=== PATIENT | female | born 1935 | race Two or more races ===

== ENCOUNTER 2017-12-03 19:18 | Inpatient (IN) | payer MEDICARE ==
[~2017-12-03] VITALS: Ht 165.1 cm; Wt 54.9 kg
--- NOTE | 2017-12-03 19:36 | NUR ---
BIB D/T family called 911, PER EMS FAMILY STATED "WE CAN NOT TAKE CARE OF HER ANYMORE AND THE FAMILY HAS NOT CHECKED THE PT'S BLOOD GLUCOSE LEVEL IN OVER A WEEK". PER EMS PT WAS FOUND LAYING ON THE FLOOR. PT DENIES DIZZINESS, HEAD TRAUMA, N/V, BLURRED VISSION. PT IS AAOX3. PT C/O BACK PAIN D/T "HAVING CHRONIC BACK PAIN".PT PLACED ON CARDIAC MONTOR AND POX. PT SAFETY AND COMFORT MEASURES IN PLACE. NO S/S OF ACUTE DISTRESS NOTED. RESP EVEN AND UNLABORED. AWAITING MD FOR EVAL.
--- NOTE | 2017-12-03 19:40 | NUR ---
PER EMS, PT'S FAMILY MEMBER DID NOT HAVE A LIST OF THE MEDICATIONS AND PT UNABLE TO RECALL HER HOME MEDS. MD HATHAWAY.
--- NOTE | 2017-12-03 19:55 | NUR ---
PT TO CT
--- NOTE | 2017-12-03 20:24 | NUR ---
PT BACK FROM CT
--- NOTE | 2017-12-03 20:24 | NUR ---
PHLEBOTOMY BEDSIDE FOR BLOO DRAW
[2017-12-03 20:32] LABS: BASOPHILS # (AUTO) 0.1 /CMM (0.0-0.2); BASOPHILS % (AUTO) 0.5 % (0.0-2.0); EOSINOPHILS % (AUTO) 0.5 % (0.0-6.0); HEMATOCRIT 35 % (33-45); HEMOGLOBIN 11.7 g/dL (11.5-14.8); LYMPHOCYTES # (AUTO) 0.4 /CMM (0.8-4.8); LYMPHOCYTES % (AUTO) 2.8 % (20.0-44.0); MEAN CORPUSCULAR HEMOGLOBIN 31 PG (26.0-33.0); MEAN CORPUSCULAR HGB CONC 33 g/dl (31.0-36.0); MEAN CORPUSCULAR VOLUME 94 fL (82-100); MONOCYTES # (AUTO) 0.4 /CMM (0.1-1.30); MONOCYTES % (AUTO) 2.9 % (2.0-12.0); NEUTROPHILS % (AUTO) 93.3 % (43.0-81.0); PLATELET COUNT (AUTO) 278 /CMM (150-450); RDW COEFFICIENT OF VARIATION 14.1 (11.5-15.0); RED BLOOD CELL COUNT(AUTO) 3.77 MIL/uL (4.0-5.2)
[2017-12-03 20:42] LABS: CALCIUM, SERUM 8.9 mg/dL (8.5-10.1); CARBON DIOXIDE 22 mmol/L (21-32); CHLORIDE 106 mmol/L (98-107); CREATININE 2.3 mg/dL (0.6-1.3); GLUCOSE 124 mg/dL (74-106); POTASSIUM 4.5 mmol/L (3.5-5.1); SODIUM SERUM 136 mmol/L (136-145); UREA NITROGEN, BLOOD 71 mg/dL (7-18)
[2017-12-03 20:48] LABS: ALANINE AMINOTRANSFERASE 17 U/L (12-78); ALBUMIN 2.8 g/dL (3.4-5.0); ALKALINE PHOSPHATASE 65 U/L (46-116); ASPARTATE AMINOTRANSFERASE 18 U/L (15-37); BILIRUBIN,DIRECT 0.1 mg/dL (0.0-0.2); BILIRUBIN,TOTAL 0.5 mg/dL (0.2-1.0); LIPASE 75 U/L (73-393)
--- NOTE | 2017-12-03 20:51 | NUR ---
PT PLACED ON BEDPAN. PT REFUSED BENZ CATH. MADE AWARE
--- NOTE | 2017-12-03 21:20 | NUR ---
PT UNABLE TO GIVE URINE SAMPLE AT THIS TIME, MADE AWARE.
--- NOTE | 2017-12-03 21:50 | NUR ---
CALLED [facility] FOR PANEL - SALES AGENT PROTECTIVE SERVICE TIMOTHY CAMPBELL
--- NOTE | 2017-12-03 21:58 | NUR ---
TECHNICAL REPORT WRITER BEDSIDE.
[2017-12-03] MEDS ORDERED: IV NS 0.9% 1,000 ML IV PRN (22:00)
[2017-12-03] MEDS ORDERED: MAGNESIUM HYDROXIDE 30 ML UDC PO PRN (22:30)
[2017-12-03] MEDS ORDERED: Z GUARD REMEDY 2 OZ OINT TP PRN (22:30)
[2017-12-03] MEDS ORDERED: DEXTROSE 50%-WATER 50 ML DISP.SYRIN IV PRN (22:30)
[2017-12-03] MEDS ORDERED: ZOLPIDEM TARTRATE 5 MG TABLET PO PRN (22:30)
[2017-12-03] MEDS ORDERED: ACETAMINOPHEN 325 MG TABLET PO PRN (22:30)
[2017-12-03] MEDS ORDERED: ONDANSETRON HCL/PF 4 MG/2 ML VIAL IVP PRN (22:30)
--- NOTE | 2017-12-03 23:08 | NUR ---
REPORT GIVEN TO RETAIL TIRE SALES MANAGERRICHARD WISE FOR AUGUST
--- NOTE | 2017-12-03 23:09 | NUR ---
RN OPENING NOTES RECEIVED BEDSIDE REPORT FROM KIKI, ER NURSE. PT ENTERED UNIT VIA GURNEY ACCOMPANIED BY 2 ER STAFF. PT CALM, IN NO ACUTE DISTRESS, NO SOB, BREATHING EVEN AND UNLABORED, ALERT AND ORIENTED X 3 BUT NOTED WITH FORGETFULNESS, VERBALLY RESPONSIVE, ABLE TO MAKE NEEDS KNOWN. ORIENTED PT TO UNIT, ROOM, ADMISSION PROCESS, CALL LIGHT AND USE OF CALL LIGHT. ALL PATIENT'S NEEDS ATTENDED TO. PLACED CALL LIGHT WITHIN EASY REACH. BED IN LOW POSITION AND LOCKED IN PLACE. WILL CONTINUE TO MONITOR PT.
[2017-12-03 23:15] VITALS: BP 130/57
[2017-12-04] MEDS ORDERED: MEROPENEM 500 MG VIAL IV ONE (00:23)
[2017-12-04] MEDS: MEROPENEM 500 MG in IV NS 0.9% 100 ML IV SCH ×2 (00:27→11:44)
[2017-12-04] MEDS: IV NS 0.9% 1,000 ML IV PRN ×2 (00:28→15:39)
--- NOTE | 2017-12-04 01:25 | NUR ---
RN NOTES ABLE TO CALL PATIENT'S DAUGHTER, MALI, TEL # [phone], AND MALI WAS ABLE TO PROVIDE PATIENT'S HOME MEDICATION. ALSO NOTED PT EPISODE OF LOOSE STOOL. PAGED RENAE AGUIRRE FOR MED RECONCILIATION. WILL CONTINUE TO MONITOR PT.
[2017-12-04] MEDS ORDERED: METO50TA16 PO (01:31)
[2017-12-04] MEDS ORDERED: MECL-102 PO (01:37)
[2017-12-04] MEDS ORDERED: CLON0.1T14 PO (01:37)
[2017-12-04] MEDS ORDERED: LEVO125T8 PO (01:37)
[2017-12-04] MEDS ORDERED: DILT180C53 PO (01:37)
[2017-12-04] MEDS ORDERED: ESCI10TA PO (01:37)
[2017-12-04] MEDS ORDERED: MEGE400O4 PO (01:37)
[2017-12-04] MEDS ORDERED: AMIO200T4 PO (01:37)
[2017-12-04] MEDS ORDERED: ACET-907 PO (01:37)
[2017-12-04] MEDS ORDERED: APIX2.5T PO (01:37)
[2017-12-04] MEDS ORDERED: ALPR0.5T PO (01:37)
[2017-12-04] MEDS ORDERED: METF500T6 PO (01:37)
[2017-12-04 04:00] VITALS: BP 126/61
[2017-12-04 06:22] LABS: EOSINOPHILS % (AUTO) 0.4 % (0.0-6.0); HEMATOCRIT 31 % (33-45); HEMOGLOBIN 10.3 g/dL (11.5-14.8); LYMPHOCYTES # (AUTO) 0.6 /CMM (0.8-4.8); LYMPHOCYTES % (AUTO) 4.5 % (20.0-44.0); MEAN CORPUSCULAR HEMOGLOBIN 32 PG (26.0-33.0); MEAN CORPUSCULAR HGB CONC 33 g/dl (31.0-36.0); MEAN CORPUSCULAR VOLUME 96 fL (82-100); MONOCYTES # (AUTO) 0.6 /CMM (0.1-1.30); NEUTROPHILS # (AUTO) 12.9 /CMM (1.8-8.9); NEUTROPHILS % (AUTO) 91.1 % (43.0-81.0); PLATELET COUNT (AUTO) 235 /CMM (150-450); RDW COEFFICIENT OF VARIATION 15.4 (11.5-15.0); RED BLOOD CELL COUNT(AUTO) 3.23 MIL/uL (4.0-5.2); WHITE BLOOD COUNT (AUTO) 14.1 K/uL (4.3-11.0)
--- NOTE | 2017-12-04 06:27 | NUR ---
RN CLOSING NOTES PATIENT IN BED, ASLEEP BUT EASILY AROUSABLE, VERBALLY RESPONSIVE. PT WITH NO SOB NOTED, BREATHING EVEN AND UNLABORED, IN NO ACUTE DISTRESS, DENIES PAIN, NO FACIAL GRIMACING NOTED. NOTED PATIENT WITH 2 EPISDOES OF LOOSE STOOL.ALL PATIENT'S NEEDS ATTENDED TO. BENZ CATHETER DRAINING WITH YELLOW URINE. IVF INFUSING WELL ORDERED. PLACED CALL LIGHT WITHIN EASY REACH. BED IN LOW POSITION AND LOCKED IN PLACE. WILL ENDORSE TO AM SHIFT NURSE FOR CONTINUITY OF CARE. Addendum: 12/04/17 at 0631 by MAXWELL MOORE RN PT ON TELE MONITORING SR WITH AFIB, A-PACING @ 60S.
[2017-12-04 06:31] LABS: APPEARANCE,URINE CLOUDY (CLEAR); BILIRUBIN,URINE NEGATIVE (NEGATIVE); BLOOD, URINE 2+ Ery/uL (NEGATIVE); COLOR,URINE YELLOW (YELLOW); KETONES,URINE TRACE (NEGATIVE); LEUKOCYTE ESTERASE ,URINE 2+ (NEGATIVE); NITRITE, URINE NEGATIVE (NEGATIVE); PH,URINE 5.5 (5.0-8.0); PROTEIN,URINE TRACE mg/dl (NEGATIVE); UGLUCOSE NEGATIVE (NEGATIVE); UROBILINOGEN,URINE 0.2 EU/dL (0.2)
[2017-12-04 06:45] LABS: CHOLESTEROL 93 mg/dL (<200); HDL CHOLESTEROL 26 mg/dL (40-60); LDL 58 mg/dL (0-99); TRIGLYCERIDES 78 mg/dL (30-150)
[2017-12-04 06:53] LABS: CARBON DIOXIDE 18 mmol/L (21-32); CHLORIDE 110 mmol/L (98-107); CREATININE 1.7 mg/dL (0.6-1.3); GLUCOSE 86 mg/dL (74-106); MAGNESIUM 2.1 mg/dL (1.8-2.4); POTASSIUM 4.1 mmol/L (3.5-5.1); SODIUM SERUM 142 mmol/L (136-145); UREA NITROGEN, BLOOD 54 mg/dL (7-18)
[2017-12-04] MEDS: BLOOD SUGAR DIAGNOSTIC 1 EACH STRIP IN SCH ×4 (06:55→22:02)
--- NOTE | 2017-12-04 07:10 | NUR ---
MS RAMOS INITIAL NOTES Received patient on bed A/O x3 with episodes of forgetfulness. On tele monitor A-pacing @60. On RA with no SOB/respiratory distress noted. No complaints of discomfort at this time. With patent Portacath on RCW, no signs of infection noted. With patent indwelling FC draining well with clear yellow urine output. For wound and podiatry consult with PT evaluation. With report from previous shift of 2x episode of LBM. On enhanced contact precaution for possible c-diff. Kept clean, dry and comfortable. Will monitor accordingly.
[2017-12-04] MEDS: LEVOTHYROXINE SODIUM 125 MCG TABLET PO SCH (07:24)
[2017-12-04 07:45] LABS: BACTERIA,URINE Many /HPF (None Seen); SQUAMOUS EPITHELIAL CELL,UR Few /HPF (None Seen)
[2017-12-04 07:47] LABS: YEAST,URINE Many /HPF (None Seen)
[2017-12-04 07:48] LABS: URIC ACID CRYSTALS,URINE Moderate /HPF (None Seen)
[2017-12-04 08:00] VITALS: BP 130/68
[2017-12-04] MEDS: MEGESTROL ACETATE SUSP 400 MG/10 ML UDC PO SCH (08:37)
[2017-12-04] MEDS: CLONIDINE HCL 0.1 MG TABLET PO SCH ×3 (08:38→16:41)
[2017-12-04] MEDS: METOPROLOL TARTRATE 50 MG TABLET PO SCH ×2 (08:38→16:42)
[2017-12-04] MEDS: AMIODARONE HCL 200 MG TABLET PO SCH (08:38)
[2017-12-04] MEDS: DILTIAZEM HCL CD 180 MG PO SCH (08:47)
[2017-12-04] MEDS ORDERED: CLOPIDOGREL BISULFATE 75 MG TABLET PO SCH (09:00)
--- NOTE | 2017-12-04 10:51 | NUR ---
MS RN NOTES Patient noted to be confused telling she is going to the hospital, picking out telemonitor patches. Reorient the patient, applied new telemonitor patches. On A-pacing @ 60. Turned on bed exit alarm. Will continue to monitor closely.
[2017-12-04 12:00] VITALS: BP 116/63
--- NOTE | 2017-12-04 13:15 | NUR ---
MS RN NOTES 1300 BP checked 100/49mmHg; HR 61bpm. Due med for BP held.
[2017-12-04 16:00] VITALS: BP 104/60
[2017-12-04] MEDS: APIXABAN 2.5 MG TABLET PO SCH (16:41)
--- NOTE | 2017-12-04 16:48 | NUR ---
MS RN NOTES Due BP meds held due to low parameters: LUZ MARINA 104/60mmHg; HR 60bpm.
[2017-12-04] MEDS: VANCOMYCIN HCL 125 MG/2.5 ML ORAL.SUSP PO SCH (17:00)
--- NOTE | 2017-12-04 17:14 | NUR ---
Spoke with patient daughter Derek, stated patient lives locally with her 2 daughters Derek and Chasity in a single level dwelling but has wide 3 steps to entrance. Prior to admit, patient was ambulating with a walker and requires min assist with adl's. Derek stated that patient has been falling at home and developed pressure ulcers. She has been declining with her mobility, difficulty with ambulation. Discussed dc planning options, family agreed with short term SNF. List will be provided to daughter. Family prefer [facility]. Addendum: 12/04/17 at 1714 by MILLICENT ORANTES RN Amended: Links added.
[2017-12-04] MEDS: INSULIN REGULAR, HUMAN 100 UNIT/ML 3 ML VIAL SQ PRN (17:23)
--- NOTE | 2017-12-04 19:01 | NUR ---
CHIEF ACCOUNTING OFFICER CLOSING NOTES Patient A/O X2-3, on Carlson's position, episodes of forgetfulness noted. Portacath remained patent and intact, no signs of infection noted. Reoriented patient her current location; reemphasized to patient the importance of her tele monitoring. Remained on enhanced contact precaution for positive c.diff. Started on PO Vanco as ordered. BP meds were held due to low parameters. Attended all concerns, call light kept at bedside within easy reach. For bilateral lower extremities wound debridement, verbal consent obtained from daughter Derek Watts. For arterial Doppler lower extremities bilateral. Afebrile throughout the shift. Monitored closely and regularly. Endorsed to the next shift.
--- NOTE | 2017-12-04 19:15 | NUR ---
TELE/RN NOTES RECEIVED PT. LYING IN BED. PT. IS AWAKE, ALERT AND ORIENTED X2. BREATHING EVEN AND UNLABORED ON ROOM AIR. NO SOB, RESPIRATORY DISTRESS OR COMPLAINTS OF PAIN NOTED AT THIS TIME. PT. WITH EXTERNAL FUEL DOCK ATTENDANT PRESENT AND INTACT, CURRENT RHYTHM = A-PACING HR 60. PT. WITH RIGHT CHEST WALL PORTACATH PRESENT, PATENT AND INTACT ADMINISTERING TO PT. NS @ 75ML/HR. PT. WITH BENZ CATHETER PRESENT, PATENT AND INTACT DRAINING CLOUDY YELLOW URINE. PT. WITH FAMILY MEMBER PRESENT AT BEDSIDE. ISOLATION PRECAUTIONS IMPLEMENTED AND IN PLACE. PER DAYSHIFT NURSE PT. IS SCHEDULED FOR BILATERAL LOWER EXTREMITY EOUND DEBRIDEMENT WITH DR. SORTO TOMORROW, CONSENT IS SIGNED AND IN PT. CHART. BED LOCKED AND IN LOWEST POSITION, SIDE RAILS UP X3, BED ALARM ON, CALL LIGHT WITHIN REACH, WILL CONTINUE TO MONITOR.
[2017-12-04 20:00] VITALS: BP 106/55
[2017-12-04] MEDS: ESCITALOPRAM OXALATE (10 MG) 10 MG TABLET PO SCH (22:02)
[2017-12-05] VITALS: BP 115/58
[2017-12-05] MEDS: VANCOMYCIN HCL 125 MG/2.5 ML ORAL.SUSP PO SCH ×5 (00:18→23:36)
[2017-12-05] MEDS: MEROPENEM 500 MG in IV NS 0.9% 100 ML IV SCH ×3 (00:19→23:36)
--- NOTE | 2017-12-05 03:09 | NUR ---
TELE/RN NOTES PT. IS LYING IN BED RESTING. BREATHING EVEN AND UNLABORED ON ROOM AIR. NO SOB, RESPIRATORY DISTRESS OR COMPLAINTS OF PAIN NOTED AT THIS TIME. ISOLATION PRECAUTIONS IMPLEMENTED AND IN PLACE. BED LOCKED AND IN LOWEST POSITION, SIDE RAILS UP X3, BED ALARM ON, CALL LIGHT WITHIN REACH. GAVE REPORT AND ENDORSED PT. TO RICHARD ARREOLA FOR CONTINUITY OF CARE.
--- NOTE | 2017-12-05 03:10 | NUR ---
SYRUP MAKER COOK NOTES RECEIVED REPORT FROM MIKAYLA RAMOS FOR CONTINUITY OF CARE. PATIENT IN BED, ASLEEP BUT EASILY AROUSABLE, IN NO ACUTE DISTRESS, RECEIVING IVF ORDERED. ALL NEEDS ATTENDED TO, CALL LIGHT WITHIN EASY REACH, BED IN LOW POSITION AND LOCKED IN PLACE. WILL CONTINUE TO MONITOR.
[2017-12-05 04:00] VITALS: BP 116/55
[2017-12-05] MEDS: IV NS 0.9% 1,000 ML IV PRN ×2 (04:03→18:22)
--- NOTE | 2017-12-05 06:40 | NUR ---
WOUND CARE CONSULT WOUND CARE RECEIVED CONSULT FOR RIGHT HEEL WOUND. WILL DEFER BILATERAL HEELS TO PODIATRY AND SACRAL STAGE 3 ALL POA TO SURGICAL TEAM. PATIENT WITH YASMIN AT 13. PT ON ISOFLEX LOW AIRLOSS SPECIALTY BED, RECOMMEND CONTINUE TURNING Q 2 HOURS AND BILATERAL HEEL FLOATING. RECOMMEND CONTINUE USE OF Z GUARD FOR SKIN/MOISTURE MANAGEMENT. WILL SEE PRN. Addendum: 12/05/17 at 0643 by ALEIDA OSUNA WNDNU ALL PRESSURE ULCER PREVENTION MEASURES NOTED TO BE IN PLACE AT THIS TIME.
[2017-12-05 06:47] LABS: EOSINOPHILS % (AUTO) 1.3 % (0.0-6.0); HEMATOCRIT 30 % (33-45); HEMOGLOBIN 9.9 g/dL (11.5-14.8); LYMPHOCYTES # (AUTO) 0.8 /CMM (0.8-4.8); LYMPHOCYTES % (AUTO) 8.1 % (20.0-44.0); MEAN CORPUSCULAR HEMOGLOBIN 32 PG (26.0-33.0); MEAN CORPUSCULAR HGB CONC 33 g/dl (31.0-36.0); MEAN CORPUSCULAR VOLUME 97 fL (82-100); MONOCYTES # (AUTO) 0.5 /CMM (0.1-1.30); MONOCYTES % (AUTO) 4.6 % (2.0-12.0); NEUTROPHILS # (AUTO) 8.9 /CMM (1.8-8.9); PLATELET COUNT (AUTO) 237 /CMM (150-450); RDW COEFFICIENT OF VARIATION 14.9 (11.5-15.0); WHITE BLOOD COUNT (AUTO) 10.3 K/uL (4.3-11.0)
[2017-12-05] MEDS: BLOOD SUGAR DIAGNOSTIC 1 EACH STRIP IN SCH ×4 (06:50→22:06)
[2017-12-05] MEDS: LEVOTHYROXINE SODIUM 125 MCG TABLET PO SCH (06:50)
[2017-12-05 07:20] LABS: CALCIUM, SERUM 7.5 mg/dL (8.5-10.1); CARBON DIOXIDE 19 mmol/L (21-32); CHLORIDE 111 mmol/L (98-107); CREATININE 1.2 mg/dL (0.6-1.3); GLUCOSE 89 mg/dL (74-106); POTASSIUM 3.7 mmol/L (3.5-5.1); SODIUM SERUM 142 mmol/L (136-145); UREA NITROGEN, BLOOD 28 mg/dL (7-18)
--- NOTE | 2017-12-05 07:21 | NUR ---
HOME SECURITY PROFESSIONAL CLOSING NOTES PATIENT IN BED, ASLEEP BUT EASILY AROUSABLE, NO SOB, BREATHING EVEN AND UNLABORED AND IN NO ACUTE DISTRESS. PT DENIES PAIN, NAUSEA AND DIZZINESS, CONTINUES TO RECEIVE IVF ORDERED VIA PORTACATH ON RCW, WITH BENZ CATHETER, DRAINING WELL WITH ELIEL URINE. PT WAS TURNED AND REPOSITIONED [id number], ALL NEEDS ATTENDED TO THROUGHOUT THE SHIFT, RE-ORIENTED NEEDED. PLACED CALL LIGHT WITHIN EASY REACH, BE DIN LOW POSITION AND LOCKED IN PLACE. ON TELE MONITORING A-PACING @ 60s. WILL ENDORSE TO AM SHIFT NURSE FOR CONTINUITY OF CARE.
[2017-12-05 08:00] VITALS: BP 140/97
[2017-12-05] MEDS: MEGESTROL ACETATE SUSP 400 MG/10 ML UDC PO SCH (08:21)
[2017-12-05] MEDS: METOPROLOL TARTRATE 50 MG TABLET PO SCH ×2 (08:22→17:00)
[2017-12-05] MEDS: DILTIAZEM HCL CD 180 MG PO SCH (08:22)
[2017-12-05] MEDS: AMIODARONE HCL 200 MG TABLET PO SCH (08:24)
[2017-12-05] MEDS: CLONIDINE HCL 0.1 MG TABLET PO SCH ×3 (08:25→17:00)
[2017-12-05] MEDS: APIXABAN 2.5 MG TABLET PO SCH ×2 (08:27→17:32)
--- NOTE | 2017-12-05 08:45 | NUR ---
MS RN NOTES RECEIVED PATIENT IN BED ALERT ORIENTED X 2. NO ACUTE DISTRESS NOTED. BREATHING UNLABORED. NO SOB NOTED. IV ACCESS PATENT AND INTACT, NO REDNESS OR SWELLING NOTED, SECURED WITH TRANSPARENT DRESSING. BENZ CATHETER INTACT, DRAINING WELL. SAFETY MEASURES IN PLACE. CALL LIGHT WITHIN REACH. WILL CONTINUE TO MONITOR ACCORDINGLY.
[2017-12-05] MEDS: HYDROGEL DRESSING 90 GM TUBE TP PRN (08:51)
[2017-12-05] MEDS: HYDROGEL DRESSING 90 GM TUBE TP SCH (09:22)
[2017-12-05] MEDS ORDERED: LIDOCAINE 1% INJ 50 ML MDV IJ ONE (09:30)
[2017-12-05] MEDS ORDERED: SILVER NITRATE APPLICATOR 1 EA BOX TP STA (09:52)
--- NOTE | 2017-12-05 10:00 | NUR ---
MS RN NOTES DEBRIDEMENT OF BILATERAL HEEL DONE AT BEDSIDE BY GIGI SORTO DPM, COVERED WITH GAUZE AND KERLIX. PATIENT TOLERATED WELL. POST DEBRIDEMENT PHOTO TAKEN PLACED AT THE CHART. WILL CONTINUE TO MONITOR PATIENT.
[2017-12-05 16:00] VITALS: BP 108/61
--- NOTE | 2017-12-05 18:43 | NUR ---
MS RN NOTES PATIENT IN BED ALERT ORIENTED X 2. DAUGHTER AT BEDSIDE. NO ACUTE DISTRESS NOTED. BREATHING UNLABORED. NO SOB NOTED. IV ACCESS PATENT AND INTACT, NO REDNESS OR SWELLING NOTED, SECURED WITH TRANSPARENT DRESSING. BENZ CATHETER INTACT, DRAINING WELL. NEEDS ATTENDED AND ANTICIPATED. BILATERAL HEEL DRESSING INTACT, CLEAN AND DRY, NO BLEEDING NOTED. KEPT CLEAN, DRY AND COMFORTABLE. SAFETY MEASURES IN PLACE. CALL LIGHT WITHIN REACH. WILL CONTINUE TO MONITOR ACCORDINGLY. WILL ENDORSED TO NIGHT NURSE FOR CONTINUITY OF CARE.
--- NOTE | 2017-12-05 19:00 | NUR ---
MS RN OPENING NOTE Patient was seen in high-Carlson's position in bed AAOx2, breathing on RA with no SOB, and currently no signs of acute distress. NS at 75ml/hr is running through the Port-a-cath in the right chest wall with no signs of leaking, infiltration, redness, or edema. Bilateral heels are offloaded and covered with a dressing (s/p wound debridement today 12/05); dressings are clean, dry, and intact with no signs of bleeding. Padilla is draining yellow urine. Daughter Derek is at the bedside. Thorough education was provided to the patient and daughter regarding C.diff. infection, what it is, how it can spread, the need to wear gown and gloves, proper hand washing, and using bleach to clean surfaces. Both patient and daughter verbalized understanding. Patient is currently comfortable in bed and has no immediate needs or concerns. Will continue to monitor.
[2017-12-05 20:00] VITALS: BP 102/55
--- NOTE | 2017-12-05 21:24 | NUR ---
MS RN CLOSING NOTE Patient remains in stable condition. Report given to Joyce for continuity of care.
[2017-12-05] MEDS: ESCITALOPRAM OXALATE (10 MG) 10 MG TABLET PO SCH (21:57)
--- NOTE | 2017-12-05 22:07 | NUR ---
RN MS NOTES BS 120 - NO COVERAGE NEEDED
[2017-12-06] MEDS: VANCOMYCIN HCL 125 MG/2.5 ML ORAL.SUSP PO SCH ×4 (06:31→23:50)
[2017-12-06] MEDS: BLOOD SUGAR DIAGNOSTIC 1 EACH STRIP IN SCH ×4 (06:39→21:55)
--- NOTE | 2017-12-06 06:53 | NUR ---
RN MS NOTES BS 85 - NO COVERAGE NEEDE
--- NOTE | 2017-12-06 06:54 | NUR ---
RN MS CLOSING NOTES PATIENT IN BED RESTING. ALERT AND ORIENTED X1, CONFUSED. WHEN AWAKE. VERBALLY RESPONSIVE. BREATHING EVEN AND UNLABORED. NO SOB NOTED. CURRENTLY WITH NO COMPLAINTS OF PAIN OR DISCOMFORT. NO FACIAL GRIMACING. SKIN DRY AND WARM TO TOUCH. RIGHT UPPER CHEST PORT-A-CATH INTACT AND PATENT - CURRENTLY RUNNING NS @ 75ML/HR. PATIENTS IS S/P BILATERAL HEEL DEBRIDEMENT 12/05/17. DRESSING CURRENTLY DRY AND INTACT. DRESSING ON SACRUM CHANGED. REMAINES ON CONTACT ISOLATION FOR CDIFF. KEPT CLEAN, DRY, AND COMFORTABLE. ALL OTHER NEEDS ATTENDED TO. CALL LIGHT WITHIN REACH. BED ON LOWEST LOCKED POSITION. WILL ENDORSE TO ONCOMING NURSE FOR CONTINUITY OF CARE.
--- NOTE | 2017-12-06 07:15 | NUR ---
MS RN INITIAL NOTES Received patient asleep on low Carlson's position, with patent portacath on upper RCW with NS infusing well @ 75ml/hr. No s/s of discomfort noted, respiration even and unlabored. With patent F/C indwelling well with clear yellow urine output. S/PD1 wound debridement of bilateral heels with orders to change dressing PRN if soiled. Kept clean, dry and comfortable. Will continue to monitor accordingly.
[2017-12-06] MEDS: LEVOTHYROXINE SODIUM 125 MCG TABLET PO SCH (07:38)
[2017-12-06] MEDS: IV NS 0.9% 1,000 ML IV PRN ×2 (07:53→23:51)
[2017-12-06 08:00] VITALS: BP_SYST 109; BP_SYST 133; BP_DIAS 62; BP_DIAS 63
[2017-12-06] MEDS: APIXABAN 2.5 MG TABLET PO SCH ×2 (08:02→17:12)
[2017-12-06] MEDS: AMIODARONE HCL 200 MG TABLET PO SCH (08:05)
[2017-12-06] MEDS: DILTIAZEM HCL CD 180 MG PO SCH (08:06)
[2017-12-06] MEDS: CLONIDINE HCL 0.1 MG TABLET PO SCH ×3 (08:06→17:00)
[2017-12-06] MEDS: MEGESTROL ACETATE SUSP 400 MG/10 ML UDC PO SCH (08:07)
[2017-12-06] MEDS: METOPROLOL TARTRATE 50 MG TABLET PO SCH ×2 (08:07→17:13)
[2017-12-06] MEDS: HYDROGEL DRESSING 90 GM TUBE TP SCH (08:08)
[2017-12-06] MEDS: HYDROCODONE/APAP 5/325MG 1 EACH TABLET PO PRN ×3 (09:10→21:26)
--- NOTE | 2017-12-06 09:45 | NUR ---
Ms RN NOTES On pureed [facility] diet, food served not consumed, patient claimed no appetite. Claimed to be in pain, [place] 5/325 given as ordered.
[2017-12-06] MEDS: MEROPENEM 500 MG in IV NS 0.9% 100 ML IV SCH (12:22)
[2017-12-06] MEDS: INSULIN REGULAR, HUMAN 100 UNIT/ML 3 ML VIAL SQ PRN (13:18)
[2017-12-06 16:00] VITALS: BP 133/63
--- NOTE | 2017-12-06 18:36 | NUR ---
MS RN CLOSING NOTES Transferred to Room 313-1 for housekeeping purposes. Patient A/O X1-2, on high Carlson's position on bed, easily aroused to light touch, non-verbal. With patent portacath on upper RCW with Ns infusing well at 75ml/hr. With patent indwelling FC with clear yellow urine output. Patient able to take whole pills. Latest blood pressure increased to 129/60mmHg, Clonidine was refused for 1700H. For discharge once place to go is determined, CM discussed d/c plan with family at bedside. Medicated for pain, noted to be effective. Kept on bed comfortable, clean and dry. Endorsed to the next shift.
--- NOTE | 2017-12-06 19:30 | NUR ---
RN NOTES RECEIVED PATIENT IN BED AWAKE, AO X 1, ABLE TO MAKE NEEDS KNOWN . NO ACUTE DISTRESS NOTED. MONITORED FOR PAIN. PORT-A-CATH INTACT; IVF INFUSING ORDERED. BENZ CATH PATENT, INTACT; DRAINING CLEAR YELLOW URINE. SAFETY REMINDERS GIVEN. ON LOW BED WITH BILATERAL UPPER SIDE RAILS UP. BED ALARM ON. CALL ROBINS WITHIN EASY REACH. WILL CONTINUE TO MONITOR.
[2017-12-06 20:00] VITALS: BP 108/62
--- NOTE | 2017-12-06 20:30 | NUR ---
RN NOTES BED ALARM HEARD. PATIENT SEEN TRYING TO GET OUT OF BED. PATIENT HAS HISTORY OF FALLS; S/P BILATERAL HEEL DEBRIDEMENT. PATIENT WAS ENCOURAGED TO LIE BACK IN BED FOR SAFETY. PATIENT CONSENTED TO RETURN TO BED AFTER APPROXIMATELY 10 MINUTES. PATIENT IS CONFUSED. WILL CLOSELY MONITOR.
[2017-12-06] MEDS: ESCITALOPRAM OXALATE (10 MG) 10 MG TABLET PO SCH (21:26)
[2017-12-06] MEDS: MEROPENEM 500 MG in IV NS 0.9% 50 ML IV SCH (23:50)
[2017-12-07] MEDS: VANCOMYCIN HCL 125 MG/2.5 ML ORAL.SUSP PO SCH ×4 (06:16→23:57)
[2017-12-07] MEDS: BLOOD SUGAR DIAGNOSTIC 1 EACH STRIP IN SCH ×4 (06:33→21:17)
--- NOTE | 2017-12-07 06:50 | NUR ---
RN NOTES PATIENT IN BED AWAKE, CALM, COOPERATIVE AT THIS TIME. RESPIRATIONS EVEN. DENIES ANY PAIN AT THIS TIME. DUE MED GIVEN WITH NO ASE NOTED. NEEDS ATTENDED. SAFETY PRECAUTIONS AND COMFORT MEASURES IN PLACE. WILL GIVE REPORT TO DAY SHIFT FOR CONTINUITY OF CARE.
[2017-12-07 08:00] VITALS: BP 176/84
--- NOTE | 2017-12-07 08:00 | NUR ---
MS RN OPENING NOTES PATIENT IN BED AT LOWEST AND LOCKED POSITION WITH SIDE RAILS UP, AWAKE, AO X 1. NO ACUTE DISTRESS BUT THE PATIENT IS CONFUSED. BENZ CATH IN PATENT AND INTACT BUT THE PATIENT HAS TRIED PULLING ON IT. IT IS DRAINING CLEAR YELLOW URINE. SAFETY REMINDERS GIVEN. PORT-A-CATH INTACT, IVF INFUSING ORDERED.BED ALARM IS ON AND CALL LIGHT WITHIN REACH. WILL CONTINUE TO MONITOR AND ASSESS.
[2017-12-07] MEDS: LEVOTHYROXINE SODIUM 125 MCG TABLET PO SCH (08:10)
[2017-12-07] MEDS: APIXABAN 2.5 MG TABLET PO SCH ×2 (08:11→18:11)
[2017-12-07] MEDS: MEGESTROL ACETATE SUSP 400 MG/10 ML UDC PO SCH (08:11)
[2017-12-07] MEDS: CLONIDINE HCL 0.1 MG TABLET PO SCH ×3 (08:14→16:23)
[2017-12-07] MEDS: DILTIAZEM HCL CD 180 MG PO SCH (08:15)
[2017-12-07] MEDS: AMIODARONE HCL 200 MG TABLET PO SCH (08:18)
[2017-12-07] MEDS: METOPROLOL TARTRATE 50 MG TABLET PO SCH ×2 (08:19→16:24)
[2017-12-07] MEDS: HYDROGEL DRESSING 90 GM TUBE TP SCH (08:21)
[2017-12-07] MEDS: MEROPENEM 500 MG in IV NS 0.9% 50 ML IV SCH ×2 (12:03→23:57)
[2017-12-07] MEDS: IV NS 0.9% 1,000 ML IV PRN (14:55)
[2017-12-07 16:00] VITALS: BP 98/48
--- NOTE | 2017-12-07 18:30 | NUR ---
MS RN NOTES PATIENT IN BED RESTING NO SOB OR ACUTE DISTRESS NOTED. PATIENT ALERT, ORIENTED X1. ALL DUE MEDICATIONS ADMINISTERED. ALL NEEDS MET. PATIENT WITH ACCESSED PORT A CATH ON RIGHT CHEST WALL. INTACT PATENT. WILL ENDORSE CARE TO PM SHIFT.
--- NOTE | 2017-12-07 19:30 | NUR ---
RN NOTES RECEIVED PATIENT IN BED ASLEEP, EASILY AROUSABLE. AO X 1, ABLE TO MAKE NEEDS KNOWN . NO ACUTE DISTRESS NOTED. NO SIGNS OF PAIN NOTED. PORT-A-CATH INTACT; IVF INFUSING ORDERED. BENZ CATH PATENT, INTACT; DRAINING CLEAR YELLOW URINE. SAFETY REMINDERS GIVEN. ON LOW BED WITH BILATERAL UPPER SIDE RAILS UP. BED ALARM ON. CALL ROBISN WITHIN EASY REACH. WILL CONTINUE TO MONITOR.
[2017-12-07 20:00] VITALS: BP 102/52
[2017-12-07] MEDS: ESCITALOPRAM OXALATE (10 MG) 10 MG TABLET PO SCH (21:17)
[2017-12-07] MEDS: INSULIN REGULAR, HUMAN 100 UNIT/ML 3 ML VIAL SQ PRN (21:18)
[2017-12-08] MEDS: IV NS 0.9% 1,000 ML IV PRN (04:38)
[2017-12-08] MEDS: VANCOMYCIN HCL 125 MG/2.5 ML ORAL.SUSP PO SCH ×3 (06:04→17:40)
--- NOTE | 2017-12-08 06:37 | NUR ---
RN NOTES PATIENT IN BED AWAKE, CALM, COOPERATIVE AT THIS TIME. RESPIRATIONS EVEN. DENIES ANY PAIN AT THIS TIME. DUE MEDS GIVEN WITH NO ASE NOTED. NEEDS ATTENDED. SAFETY PRECAUTIONS AND COMFORT MEASURES IN PLACE. WILL GIVE REPORT TO DAY SHIFT FOR CONTINUITY OF CARE.
[2017-12-08] MEDS: BLOOD SUGAR DIAGNOSTIC 1 EACH STRIP IN SCH ×4 (06:57→21:27)
[2017-12-08 07:33] LABS: BASOPHILS % (AUTO) 0.2 % (0.0-2.0); EOSINOPHILS % (AUTO) 2.8 % (0.0-6.0); HEMATOCRIT 30 % (33-45); HEMOGLOBIN 9.9 g/dL (11.5-14.8); LYMPHOCYTES # (AUTO) 0.9 /CMM (0.8-4.8); LYMPHOCYTES % (AUTO) 12.5 % (20.0-44.0); MEAN CORPUSCULAR HEMOGLOBIN 32 PG (26.0-33.0); MEAN CORPUSCULAR HGB CONC 33 g/dl (31.0-36.0); MEAN CORPUSCULAR VOLUME 97 fL (82-100); MONOCYTES # (AUTO) 0.5 /CMM (0.1-1.30); MONOCYTES % (AUTO) 6.5 % (2.0-12.0); NEUTROPHILS # (AUTO) 5.6 /CMM (1.8-8.9); PLATELET COUNT (AUTO) 245 /CMM (150-450); RDW COEFFICIENT OF VARIATION 15.5 (11.5-15.0); RED BLOOD CELL COUNT(AUTO) 3.12 MIL/uL (4.0-5.2); WHITE BLOOD COUNT (AUTO) 7.2 K/uL (4.3-11.0)
[2017-12-08 07:35] LABS: CALCIUM, SERUM 7.4 mg/dL (8.5-10.1); CARBON DIOXIDE 21 mmol/L (21-32); CHLORIDE 113 mmol/L (98-107); CREATININE 0.9 mg/dL (0.6-1.3); GLUCOSE 88 mg/dL (74-106); POTASSIUM 3.7 mmol/L (3.5-5.1); SODIUM SERUM 143 mmol/L (136-145); UREA NITROGEN, BLOOD 13 mg/dL (7-18)
--- NOTE | 2017-12-08 07:35 | NUR ---
MS RN OPENING NOTES RECEIVED PATIENT AWAKE IN BED IN NO ACUTE SIGNS OF DISTRESS. A/O X 1. CONFUSED AND VERBALLY RESPONSIVE, DENIES ANY PAIN OR DISCOMFORTS AT THIS TIME. ON ROOM AIR, RESPIRATION EVEN AND UNLABORED. PORT-A-CATH ON RIGHT UPPER CHEST INTACT AND PATENT, IVF OF NS @ 75ML/HR INFUSING, NO S/S OF REDNESS NOTED AT SITE. BENZ CATH IN PLACE AND PATENT, DRAINING CLEAR YELLOW URINE TO URINARY BAG. SAFETY REMINDERS GIVEN. ON LOW BED WITH BILATERAL UPPER SIDE RAILS UP. BED ALARM ON. CALL ROBINS WITHIN EASY REACH. WILL CONTINUE TO MONITOR.
[2017-12-08] MEDS: LEVOTHYROXINE SODIUM 125 MCG TABLET PO SCH (07:41)
[2017-12-08 08:00] VITALS: BP 141/69
[2017-12-08] MEDS: MEGESTROL ACETATE SUSP 400 MG/10 ML UDC PO SCH (08:30)
[2017-12-08] MEDS: AMIODARONE HCL 200 MG TABLET PO SCH (08:30)
[2017-12-08] MEDS: DILTIAZEM HCL CD 180 MG PO SCH (08:31)
[2017-12-08] MEDS: CLONIDINE HCL 0.1 MG TABLET PO SCH ×3 (08:31→16:14)
[2017-12-08] MEDS: METOPROLOL TARTRATE 50 MG TABLET PO SCH ×2 (08:31→16:15)
[2017-12-08] MEDS: HYDROGEL DRESSING 90 GM TUBE TP PRN (08:32)
[2017-12-08] MEDS: APIXABAN 2.5 MG TABLET PO SCH ×2 (08:34→16:16)
[2017-12-08] MEDS: HYDROGEL DRESSING 90 GM TUBE TP SCH (09:11)
[2017-12-08] MEDS: MEROPENEM 500 MG in IV NS 0.9% 50 ML IV SCH (12:01)
[2017-12-08 16:00] VITALS: BP 100/52
--- NOTE | 2017-12-08 18:42 | NUR ---
MS RN CLOSING NOTES PATIENT AWAKE AND LYING @ MODERATE HIGH BACKREST POSITION. A/O X 2-3, SAME VERBALLY RESPONSIVE. CALMED AND COOPERATIVE WITH CARE ALL THROUGHOUT THE DAY. DAUGHTER VISITED THIS AFTERNOON. CONTACT PRECAUTIONS MAINTAINED FOR C-DIFF. ON ROOM AIR, TOLERATING WELL WITH NO SOB NOTED. PORT-A-CATH ON RIGHT UPPER CHEST WALL INTACT AND PATENT, DRESSING INTACT WITH NO S/S OF REDNESS NOTED AT SITE. BENZ CATH IN PLACE AND PATENT, DRAINING SLIGHTLY CLOUDY YELLOW URINE TO URINARY BAG. ALL SAFETY MEASURES KEPT IN PLACE. BED IN LOW/LOCKED POSITION WITH BILATERAL UPPER SIDE RAILS UP. BED ALARM ON. CALL ROBINS WITHIN EASY REACH. ALL NEEDS AND CARE PROVIDED WELL. WILL ENDORSE TO CDL TEAM TRUCK DRIVER NURSE FOR AUGUST. .
[2017-12-08 20:00] VITALS: BP 102/55
[2017-12-08] MEDS: ESCITALOPRAM OXALATE (10 MG) 10 MG TABLET PO SCH (21:27)
[2017-12-09] MEDS: MEROPENEM 500 MG in IV NS 0.9% 50 ML IV SCH ×2 (00:52→11:09)
[2017-12-09] MEDS: VANCOMYCIN HCL 125 MG/2.5 ML ORAL.SUSP PO SCH ×3 (00:52→11:08)
[2017-12-09] MEDS: BLOOD SUGAR DIAGNOSTIC 1 EACH STRIP IN SCH ×2 (06:11→11:08)
--- NOTE | 2017-12-09 06:47 | NUR ---
MS RN NOTES AWAKE & RESPONSIVE. NOT IN ANY DISTRESS. NO SOB NOTED. DENIES ANY PAIN OR DISCOMFORT AT THIS TIME. WITH IV-HL PATENT & INTACT. AM CARE DONE. MONITORED ACCORDINGLY. CALL LIGHT WITHIN REACH. BED IN LOWEST POSITION. SR UP X 3 FOR SAFETY WITH BED ALARM ON. WILL ENDORSE TO NEXT SHIFT.
--- NOTE | 2017-12-09 07:41 | NUR ---
MS RN OPENING NOTES RECEIVED PT LAYING IN BED WITH HOB ELEVATED. PT IS A/O X2, AFEBRILE. RESPIRATIONS ARE EVEN AND UNLABORED, NOT IN ANY ACUTE DISTRESS NOTED. PT DENIES ANY PAIN AT THIS TIME, NO C/O SOB, N/V. IV SITE INTACT, NO INFILTRATION NOTED. DRESSING KEPT CLEAN AND DRY. WILL REPOSITION PER PROTOCOL. SAFETY MEASURES ARE IN PLACE. CALL LIGHT IS LEFT WITHIN REACH. WILL CONTINUE TO MONITOR THROUGHOUT SHIFT FOR CONTINUITY OF CARE.
[2017-12-09 08:00] VITALS: BP 123/63
[2017-12-09] MEDS: LEVOTHYROXINE SODIUM 125 MCG TABLET PO SCH (08:41)
[2017-12-09] MEDS: AMIODARONE HCL 200 MG TABLET PO SCH (08:42)
[2017-12-09] MEDS: METOPROLOL TARTRATE 50 MG TABLET PO SCH (08:42)
[2017-12-09] MEDS: MEGESTROL ACETATE SUSP 400 MG/10 ML UDC PO SCH (08:43)
[2017-12-09] MEDS: DILTIAZEM HCL CD 180 MG PO SCH (08:43)
[2017-12-09] MEDS: HYDROGEL DRESSING 90 GM TUBE TP SCH (08:44)
[2017-12-09 09:00] VITALS: BP 105/60
[2017-12-09] MEDS: CLONIDINE HCL 0.1 MG TABLET PO SCH ×2 (09:00→13:00)
[2017-12-09] MEDS: APIXABAN 2.5 MG TABLET PO SCH (09:25)
--- NOTE | 2017-12-09 11:19 | NUR ---
MS RAMOS NOTES PT SEEN AND EXAMINED BY ÁNGEL JEFFRIES W/ ORDERS FOR DISCHARGE TO [facility] AND TO REMOVE BENZ CATH AND PERMA CATH. NOTED AND CARRIED OUT. Addendum: 12/09/17 at 1124 by FERMIN PAKCER RN CORRECTION: REMOVAL OF PORT A CATH, NOT PERMA CATH
--- NOTE | 2017-12-09 11:25 | NUR ---
MS RN NOTES BLOOD SUGAR 108, NO COVERAGE. NO S/SX OF HYPO/HYPERGLYCEMIA NOTED. WILL CONTINUE TO MONITOR. REMOVED BENZ CATHETER WITH 250CC OUTPUT IN THE BAG, PT TOLERATED WELL. WILL MONITOR FOR OUTPUT.
--- NOTE | 2017-12-09 14:00 | NUR ---
MS RN NOTE REMOVED NEEDLE FROM PORT-A-CATH, PT TOLERATED WELL. SKIN KEPT CLEAN AND DRY.
--- NOTE | 2017-12-09 14:50 | NUR ---
MS RN NOTES GAVE REPORT TO RICHARD ALVARENGA AT [facility].
--- NOTE | 2017-12-09 15:22 | NUR ---
MS GED TUTOR NOTE PT DISCHARGED TO [facility] VIA [facility] IN STABLE CONDITION ACCOMPANIED BY 2 EMT PERSONNEL. PT IS A/O X1-2, CONFUSED. AFEBRILE, RESPIRATIONS ARE EVEN AND UNLABORED, NOT IN ANY ACUTE DISTRESS NOTED. NO FACIAL GRIMACING NOTED. PUPILS ARE REACTIVE TO LIGHT. NO C/O SOB, N/V. NEEDLE FROM PORT A CATH REMOVED, SKIN KEPT CLEAN AND DRY. PT ABLE TO VOID X2 AFTER REMOVAL OF BENZ CATH. PHOTOS TAKEN TO BILATERAL HEELS AND SACRAL. EXPLAINED DISCHARGED PAPERWORK TO PT AND NATASHA SAMSON VIA PHONE, D/T PT BEING A/OX1, 2 NURSING SIGNATURES NOTED. PT LEFT IN STABLE CONDITION WITH CONTACT PRECAUTIONS IN PLACE.
== END 2017-12-09 15:15 | DRG 356 ==
LOC: ER 19:21 → TELE 22:25 → MED 12-05 12:41
PROVIDERS: ADMIT Nurse Practitioner Acute Care; ATTEND Nurse Practitioner Acute Care
PROC: 0JBR0ZZ Excision of Left Foot Subcutaneous Tissue and Fascia, Open Approach (ICD-10-PCS; principal; 2017-12-05)
PROC: 0JBQ0ZZ Excision of Right Foot Subcutaneous Tissue and Fascia, Open Approach (ICD-10-PCS; 2017-12-05)
DX: A04.72 Enterocolitis due to Clostridium difficile, not specified as recurrent (principal); L89.623 Pressure ulcer of left heel, stage 3; L89.614 Pressure ulcer of right heel, stage 4; N17.0 Acute kidney failure with tubular necrosis; N39.0 Urinary tract infection, site not specified; E44.0 Moderate protein-calorie malnutrition; D68.59 Other primary thrombophilia; K80.20 Calculus of gallbladder without cholecystitis without obstruction; R62.7 Adult failure to thrive; D64.9 Anemia, unspecified; E11.9 Type 2 diabetes mellitus without complications; E83.51 Hypocalcemia; I48.91 Unspecified atrial fibrillation; M16.0 Bilateral primary osteoarthritis of hip; Z87.440 Personal history of urinary (tract) infections; Z85.3 Personal history of malignant neoplasm of breast; Z90.10 Acquired absence of unspecified breast and nipple; L89.159 Pressure ulcer of sacral region, unspecified stage; I12.9 Hypertensive chronic kidney disease with stage 1 through stage 4 chronic kidney disease, or unspecified chronic kidney disease; N18.9 Chronic kidney disease, unspecified; E88.09 Other disorders of plasma-protein metabolism, not elsewhere classified; Z68.20 Body mass index [BMI] 20.0-20.9, adult; D72.829 Elevated white blood cell count, unspecified; B96.89 Other specified bacterial agents as the cause of diseases classified elsewhere
CPT/HCPCS: 36415; 70450-TC; 71250-TC; 72170-TC; 76705-TC; 80048-TC; 80061-TC; 80076-TC; 81000-TC; 82962-TC; 83605-TC; 83690-TC; 83735-TC; 84100-TC; 85025-TC; 87081-TC; 87086-TC; 97110-TC; 97116-TC; 97530-TC; A4216; A4606; A6248; A6402; A6403; J1815; J2185; J3490; J7030; J7050; Z7610